=== PATIENT | female | born 1965 | race Two or more races ===

== ENCOUNTER 2017-07-24 22:12 | Emergency (ER) | payer OTHER ==
[~2017-07-24] VITALS: Ht 165.1 cm; Wt 63.5 kg
[2017-07-24 22:19] VITALS: BP 159/111
--- NOTE | 2017-07-25 00:20 | NUR ---
51Y/O FEMALE PLACED IN BED 1 FOR MEDICAL CLEARANCE - OKTO BOOK. HX OF PANCREATITIS.
[2017-07-25] MEDS ORDERED: ONDANSETRON 4 MG TAB.RAPDIS ONE (00:21)
--- NOTE | 2017-07-25 00:24 | NUR ---
PT GIVEN PO ZOFRAN AND MEDICALLY CLEARED. OK TO BOOK. PT LEFT IN [employer]ICE CUSTODY.
[2017-07-25] MEDS ORDERED: ONDANSETRON 4 MG TAB.RAPDIS SL ONE (00:30)
== END 2017-07-25 00:25 ==
LOC: ER 22:13
DX: Z02.89 Encounter for other administrative examinations (principal); R11.0 Nausea; R10.9 Unspecified abdominal pain
CPT/HCPCS: A4606; Q0162; Z7610